=== PATIENT | male | born 1970 | race African-American/Black ===

== ENCOUNTER 2018-01-14 08:44 | Emergency (ER) | payer OTHER ==
--- NOTE | 2018-01-14 09:31 | RAD ---
CHEST 2 VIEWS: Date: 01/14/18 COMPARISON: None. HISTORY: Chest pain and shortness of breath. FINDINGS: No pneumothorax, pleural fluid, focal consolidation, or alveolar edema. Heart and mediastinal contour s unremarkable. 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 IMPRESSION: No acute findings. POS: [facility]
[2018-01-14 09:41] LABS: #Eosinphils 0.3 thou/uL (0.0-0.7); #Lymphocytes 2.2 thou/uL (1.20-3.40); #Monocytes 0.6 thou/uL (0.11-0.59); #Neutrophils 5.3 thou/uL (1.40-6.50); %Basophils 0.5 % (0.0-1.0); %Eosinophils 3.4 % (0.0-10.0); %Lymphocytes 26.3 % (21.0-51.0); %Monocytes 6.8 % (0.0-10.0); %Neutrophils 63.1 % (42.0-75.0); Hemoglobin 14.6 g/dL (14.0-18.0); Mean Corpuscular Hemoglobin 30.5 pg (27.0-31.0); Mean Corpuscular Volume 92.3 fL (78.0-98.0); Mean Platelet Volume 8.8 fL (7.4-10.4); Platelet Count 187 thou/uL (130-400); RBC Distribution Width 12.2 % (11.5-14.5); Red Blood Cell (RBC) Count 4.79 mill/uL (4.70-6.10); White Blood Cell (WBC) Count 8.4 thou/uL (4.8-10.8)
[2018-01-14 09:56] LABS: ALT (SGPT) 25 U/L (8-55); AST (SGOT) 19 U/L (5-34); Albumin 4.2 g/dL (3.5-5.0); Alkaline Phosphatase 79 U/L (40-150); Anion Gap 13 mmol/L (10-20); BUN (Urea Nitrogen) 15 mg/dL (8.9-20.6); Bilirubin, Total 0.5 mg/dL (0.2-1.2); CK (CPK) 378 U/L (30-200); Calc. Creatinine Clearance 0 mL/min (70-130); Calcium 9.6 mg/dL (7.8-10.44); Carbon Dioxide 24 mmol/L (22-29); Chloride 105 mmol/L (98-107); Estimated GFR-MDRD 80; Globulin 3.5 g/dL (2.4-3.5); Glucose 161 mg/dL (70-105); Lipase 10 U/L (8-78); Potassium 3.8 mmol/L (3.5-5.1); Protein, Total 7.7 g/dL (6.0-8.3); Sodium 138 mmol/L (136-145)
[2018-01-14 13:24] LABS: Troponin I Less than 0.010 ng/mL (< 0.028)
--- NOTE | 2018-01-16 15:28 | EKG ---
Test Reason : Blood Pressure : / mmHG Vent. Rate : 086 BPM Atrial Rate : 086 BPM P-R Int : 212 ms QRS Dur : 078 ms QT Int : 376 ms P-R-T Axes : 000 019 037 degrees QTc Int : 449 ms Sinus rhythm with 1st degree A-V block Otherwise normal ECG Confirmed by DENISHA FULTON, MARIO ([id number]), film editor MU MCKEON ([id number]) on 01/16/2018 3:28:26 PM Referred By: Confirmed By:MARIO DENNY MD
== END 2018-01-14 13:39 | disposition home or self-care (01) ==
LOC: ERS 08:44
DX: R07.9 Chest pain, unspecified (principal); E11.40 Type 2 diabetes mellitus with diabetic neuropathy, unspecified; I10 Essential (primary) hypertension; G47.30 Sleep apnea, unspecified; F32.9 Major depressive disorder, single episode, unspecified; F17.210 Nicotine dependence, cigarettes, uncomplicated; Z79.84 Long term (current) use of oral hypoglycemic drugs
CPT/HCPCS: 36415; 71046; 80053; 82550; 83690; 83880; 84484; 85025; 87804; 93005

== ENCOUNTER 2018-11-01 18:12 | Emergency (ER) | payer OTHER ==
--- NOTE | 2018-11-01 18:49 | RAD ---
PORTABLE CHEST: 11/01/18 HISTORY: Cough and headache. COMPARISON: 01/14/18 study. Heart size is upper limits considering portable technique. Mediastinal structures appear unremarkable . The lungs are clear of any infiltrative process. IMPRESSION: No active intrathoracic disease. POS: [facility]
[2018-11-01] MEDS ORDERED: Acetaminophen 500 MG TAB ONE (19:30)
[2018-11-01] MEDS ORDERED: Ondansetron ODT 4 MG TAB ONE (19:46)
[2018-11-01] MEDS ORDERED: Albuterol Sulfate 2.5 mg/3 ml Neb ONE (20:22)
[2018-11-01] MEDS ORDERED: cefTRIAXone\\ROCEPHIN 1 GM VIAL ONE (20:30)
[2018-11-01 20:40] LABS: Hemoglobin 14.3 g/dL (14.0-18.0); Mean Corpuscular HGB CONC 35.1 g/dL (32.0-36.0); Mean Corpuscular Hemoglobin 32.7 pg (27.0-31.0); Mean Corpuscular Volume 93.2 fL (78.0-98.0); Mean Platelet Volume 8.4 fL (7.4-10.4); Platelet Count 164 thou/uL (130-400); RBC Distribution Width 11.9 % (11.5-14.5); Red Blood Cell (RBC) Count 4.37 mill/uL (4.70-6.10); White Blood Cell (WBC) Count 12.3 thou/uL (4.8-10.8)
[2018-11-01 20:50] LABS: Anion Gap 14 mmol/L (10-20); BUN (Urea Nitrogen) 10 mg/dL (8.9-20.6); Calc. Creatinine Clearance 0 mL/min (70-130); Calcium 9.4 mg/dL (7.8-10.44); Carbon Dioxide 23 mmol/L (22-29); Chloride 101 mmol/L (98-107); Estimated GFR-MDRD Greater than 90; Glucose 127 mg/dL (70-105); Potassium 4.1 mmol/L (3.5-5.1); Sodium 134 mmol/L (136-145)
[2018-11-01 20:55] LABS: Eosinophils 2 % (0-10); Lymphocytes 11 % (21-51); MDiff Complete? YES; Monocytes 5 % (0-10); Neutrophil 79 % (42-75); Reactive Lymphocytes 3 % (0-10)
== END 2018-11-01 23:20 | disposition home or self-care (01) ==
LOC: ERS 18:12
DX: R05 Cough (principal); R50.9 Fever, unspecified; E11.40 Type 2 diabetes mellitus with diabetic neuropathy, unspecified; I10 Essential (primary) hypertension; G47.30 Sleep apnea, unspecified; M19.90 Unspecified osteoarthritis, unspecified site; F17.210 Nicotine dependence, cigarettes, uncomplicated; Z79.899 Other long term (current) drug therapy; Z79.82 Long term (current) use of aspirin; Z79.84 Long term (current) use of oral hypoglycemic drugs
CPT/HCPCS: 71045; 80048; 83605; 83880; 85025; 87804; 93005; 94640; 96361; 96365; J0696; J7611; J7620; Q0162

== ENCOUNTER 2019-03-10 19:00 | Outpatient (CLI) | payer OTHER | END 2019-03-10 19:01 | disposition home or self-care (01) | LOC: SLEEPLAB 19:00 | PROVIDERS: ATTEND Internal Medicine Critical Care Medicine | DX: G47.33 Obstructive sleep apnea (adult) (pediatric) (principal); R09.89 Other specified symptoms and signs involving the circulatory and respiratory systems | CPT/HCPCS: 95806 ==

== ENCOUNTER 2021-10-09 11:00 | Emergency (ER) | payer OTHER ==
[2021-10-09] MEDS ORDERED: Ketorolac Tromethamine 30 MG/ML VIAL ONE (12:40)
== END 2021-10-09 13:04 | disposition home or self-care (01) ==
LOC: ERS 11:00
DX: M25.561 Pain in right knee (principal); M25.511 Pain in right shoulder; E11.9 Type 2 diabetes mellitus without complications; E78.00 Pure hypercholesterolemia, unspecified; I10 Essential (primary) hypertension; F17.210 Nicotine dependence, cigarettes, uncomplicated; Z79.84 Long term (current) use of oral hypoglycemic drugs; Z79.82 Long term (current) use of aspirin; Z79.899 Other long term (current) drug therapy; W01.0XXA Fall on same level from slipping, tripping and stumbling without subsequent striking against object, initial encounter
CPT/HCPCS: 96372; J1885

== ENCOUNTER 2022-08-16 07:27 | Outpatient (CLI) | payer OTHER | END 2022-08-16 07:28 | disposition home or self-care (01) | LOC: BICMRI 07:27 | PROVIDERS: ATTEND Orthopaedic Surgery | DX: M23.92 Unspecified internal derangement of left knee (principal); M23.201 Derangement of unspecified lateral meniscus due to old tear or injury, left knee; M25.462 Effusion, left knee ==